=== PATIENT | male | born 1940 | race Caucasian/White ===

== ENCOUNTER 2017-11-15 08:21 | Outpatient (CLI) | payer MEDICARE, BC ==
--- NOTE | 2017-11-15 10:35 | CT ---
CT LUMBAR SPINE WITH CORONAL AND SAGITTAL REFORMATIONS WITHOUT IV CONTRAST: HISTORY: Low back pain for the past few weeks due to a fall. 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 There is mild anterior wedging of t he superior endplate of the L3 vertebral body without adjacent soft tissue swelling. This is most li isaac chronic. No acute fracture is seen. There is vacuum disk phenomenon at multiple levels. There is grade 1 anterolisthesis of the L4/L5 and of the L5/S1 vertebral bodies. 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 There is minimal levoscoliosis of the lumbar spine. IMPRESSION: No evidence of acute process. This study was interpreted in consultation with Dr. Alan Tohmpson, who concurs. POS: [facility]
== END 2017-11-15 08:22 | disposition home or self-care (01) ==
LOC: SCSCT 08:21
PROVIDERS: ATTEND Orthopaedic Surgery
DX: M43.16 Spondylolisthesis, lumbar region (principal)
CPT/HCPCS: 72131